=== PATIENT | female | born 1950 | race Caucasian/White ===

== ENCOUNTER 2020-11-14 04:28 | Emergency (ER) | payer MEDICARE, SELFPAY ==
--- NOTE | 2020-11-14 | ECG_ITS ---
Test Reason : ABD PAIN Blood Pressure : / mmHG Vent. Rate : 069 BPM Atrial Rate : 069 BPM P-R Int : 146 ms QRS Dur : 078 ms QT Int : 424 ms P-R-T Axes : 066 009 063 degrees QTc Int : 454 ms Normal sinus rhythm Normal ECG No previous ECGs available Referred By: Keira Foss Electronically Signed By:KRYSTIAN LOCKETT MD
--- NOTE | ~2020-11-14 | US_ITS ---
EXAMINATION: US ABDOMEN LIMITED CLINICAL INFORMATION: Right upper quadrant pain. COMPARISON: CT scan of same day TECHNIQUE: Real-time imaging of the right upper quadrant abdominal viscera. FINDINGS: PANCREAS: Pancreatic duct nonspecifically mildly prominent at 5 mm. No gross lesion demonstrated although imaging is limited. GALLBLADDER: Small stone noted without definite acute inflammatory changes. The patient however is reportedly tender in the right upper quadrant. No pericholecystic fluid or gallbladder wall thickening. COMMON BILE DUCT: Normal in caliber measuring 0.5 cm in diameter. FREE FLUID: None. US/US abdomen limited IMPRESSION: Gallstones without definitive findings of acute inflammatory changes sonographically. Nonspecific mild prominence of the pancreatic duct. No mass grossly.
--- NOTE | ~2020-11-14 | CT_ITS ---
EXAMINATION: CT ABDOMEN AND PELVIS WITHOUT CONTRAST CLINICAL INFORMATION: Right flank pain COMPARISON: None TECHNIQUE: Multidetector volumetric imaging was performed from the superior aspect of the liver through the pubic symphysis. Sagittal and coronal reformatted images were obtained on the technologist's workstation. This CT examination was performed using dose optimization techniques as appropriate, variously including the following: *Automated exposure control *Adjustment of mA and/or kV according to patient size (this includes techniques or standardized protocols for targeted exams where dose is matched to indication/reason for exam; i.e. extremities or head) *Use of iterative reconstruction technique DLP: 648 mGy-cm FINDINGS: LUNG BASES: The visualized lung bases demonstrate mild atelectasis. LIVER, GALLBLADDER, AND BILIARY TREE: The liver is normal in size, shape, and attenuation. No focal hepatic lesion or biliary ductal dilatation is present. The gallbladder is unremarkable with no evidence of radiopaque gallstones, gallbladder wall thickening, or obvious pericholecystic inflammatory changes. PANCREAS: Unremarkable. SPLEEN: Unremarkable. ADRENAL GLANDS: Unremarkable. KIDNEYS AND URETERS: The kidneys are normal in size, shape, and attenuation. No hydronephrosis, hydroureter, or calculi seen. No perinephric stranding. BLADDER: Unremarkable. GASTROINTESTINAL TRACT: Small hiatal hernia is noted. Colonic diverticulosis is noted. The small and large bowel are otherwise unremarkable without evidence of obstruction or pericolonic inflammatory change. The appendix is unremarkable. No free fluid or free air is seen. ABDOMINAL WALL: No significant hernia is appreciated. LYMPH NODES: Normal. VASCULAR: Scattered vascular calcifications are noted. PELVIC VISCERA: Unremarkable. OSSEOUS STRUCTURES: There is facet arthropathy of the lower lumbar spine. CT/CT abdomen pelvis wo con IMPRESSION: No hydronephrosis or obstructing calculus. No acute findings identified in the abdomen/pelvis. Small hiatal hernia.
[2020-11-14 04:32] VITALS: BP 113/73; BP 136/59; PULSE 70; PULSE 71; RESP 15; TEMP 36.9; O2SAT 93; O2SAT 94; BMI 32.2
--- NOTE | 2020-11-14 05:03 | ED.NAVMDI ---
HPI - Nausea/Vomiting/Diarrhea General Chief complaint: Nausea/Vomiting/Diarrhea Stated complaint: Rt Flank Pain Time Seen by Provider: 11/14/20 04:56 Source: patient Mode of arrival: EMS Limitations: no limitations History of Present Illness HPI Narrative: Patient comes emergency room complaining right-sided flank pain for last 9 hours, constant, radiating towards the right side of the back. Patient complaining of nausea and vomiting, no diarrhea, no abdominal pain, denies fever chills. MD elicited complaint: nausea and vomiting Related Data Allergies Allergy/AdvReac Type Severity Reaction Status Date / Time Sulfa (Sulfonamide Allergy Rash Verified 11/14/20 04:44 Antibiotics) Review of Systems Review of Systems: Constitutional : No Weight loss, No Fever, No Chills, No Night Sweats, No Fatigue, No Malaise ENT/Mouth : No Hearing loss, No Ear Pain, No Nasal Congestion, No Sinus Pain, No Hoarseness, No sore throat, No Rhinorrhea, No Swallowing Difficulty Eyes: No Eye Pain, No Swelling, No Redness, No Foreign Body, No Discharge, No Vision Changes Cardiovascular : No Chest Pain, No SOB, No Dyspnea on Exertion, No Orthopnea, No Edema, No Palpitations Respiratory : No Cough, No Sputum, No Wheezing, No Smoke Exposure, No Dyspnea Gastrointestinal : Planning of nausea and vomiting No Diarrhea, No Constipation, No abdominal Pain, No Hematochezia, No Melena, complaining of flank pain radiating towards the back Genitourinary : no irregular bleeding, No Dysuria, No Urinary Frequency, No Hematuria, No Urinary Incontinence, No Urgency, No Flank Pain, No Urinary Flow Changes, No Hesitancy Musculoskeletal : No joint pain, No Myalgias, No Joint Swelling Skin : No Skin Lesions, No rash Neuro : No Weakness, No Numbness, No Paresthesias, No Loss of Consciousness, No Dizziness, No Headache Psych : No Anxiety/Panic, No Depression, No SI/HI/AH/VH, No Social Issues, Heme/Lymph: No Bruising, No Bleeding,No Lymphadenopathy Endocrine : No Polyuria, No Polydipsia, No Temperature Intolerance PMFSH Past Medical History Medical History Anxiety Depression Frontal lobe dementia HTN (hypertension) Social History Social History Alcohol intake: never Patient Tobacco Use Status: Never used Tobacco Advance Directives: No Advance Directives Information Provided: No Physical Exam Vital Signs: Vital Signs: Last Vital Signs Temp 98.4 F 11/14/20 04:32 Pulse 65 11/14/20 05:54 Resp 14 11/14/20 05:54 BP 104/50 L 11/14/20 05:54 Pulse Ox 97 11/14/20 05:54 Body Mass Index 32.2 Appearance: Alert. Oriented X3. Mild distress, has severe nausea Eyes: Pupils equal, round and reactive to light. ENT: Pharynx normal. Neck: Normal inspection. Neck supple. No lymph nodes noted. No crepitus CVS: Normal heart rate and rhythm. Pulses normal. Normal S1 and S2 Respiratory: No respiratory distress. Breath sounds normal. No Wheezing. No rales Abdomen: Soft and nontender. No rigidity. No distention. Mild right-sided flank Skin: Skin warm and dry. Cseems pale Normal skin turgor. Extremities: No lower extremity edema. No Lacerations. No Rash Neuro: Oriented X 3. No motor deficit. No sensory deficit. Moving all extermities. No slurred speech. Course Course Course Narrative: Patient continues having right-sided flank pain/right upper quadrant pain she had CT scan was unremarkable. LFTs within normal limits. Patient is still very nauseous despite treatment and IV fluids. We will go ahead and order an ultrasound. Afterwards, if the patient is less nauseous and is able to tolerate p.o., is possible the patient may be discharged home, otherwise patient will likely be admitted. Sign out given to Dr. Oh [facility] - Nausea/Vomiting/Diarrhea Lab Data Result diagrams: 11/14/20 05:46 11/14/20 05:46 Labs: Lab Results 11/14/20 11/14/20 11/14/20 Range/Units 05:46 05:46 05:52 WBC 14.2 H (4.8-10.8) X10*3/uL RBC 4.29 (4.20-5.50) X10*6/uL Hgb 11.4 L (12.0-16.0) g/dl Hct 35.9 L (37-47) % MCV 83.7 (80-98) fL MCH 26.6 L (27.0-33.0) pg MCHC 31.8 (31.0-35.0) g/dl RDW 15.1 (11.0-16.0) % Plt Count 294 (160-400) X10*3/uL MPV 9.8 (9.4-12.3) fL Immature Gran % (Auto) 0.8 H (0.0-0.4) % Neut % (Auto) 82.5 H (45-73) % Lymph % (Auto) 9.6 L (20-40) % Camas % (Auto) 5.8 (2-11) % Eos % (Auto) 0.9 (0-4) % Baso % (Auto) 0.4 (0-2) % Lymph # (Auto) 1.4 (1.2-4.9) X10*3/uL Camas # (Auto) 0.8 (0.1-1.2) X10*3/uL Eos # (Auto) 0.1 (0.0-0.4) X10*3/uL Baso # (Auto) 0.1 (0.0-0.2) X10*3/uL Abs Immat Gran (auto) 0.11 H (0.00-0.03) X10*3/uL Absolute Neuts (auto) 11.8 H (2.0-8.3) X10*3/uL Absolute Nucleated RBC 0.000 (0.0-0.012) X10*3/uL Nucleated RBC % (auto) 0.0 (0.0-0.2) /100WBC Sodium 138 (135-145) mmol/L Potassium 3.6 (3.3-5.1) mmol/L Chloride 107 (96-108) mmol/L Carbon Dioxide 22 (22-29) mmol/L Anion Gap 13 (12-20) BUN 17 H (9-16) mg/dL Creatinine 0.78 (0.5-1.4) mg/dL Estim Creat Clear Calc 61.5 Estimated GFR > 60 Random Glucose 119 H (60-115) mg/dL Calcium 8.4 (8.4-10.2) mg/dL Total Bilirubin 0.4 (0.0-1.0) mg/dL Direct Bilirubin 0.2 (0.0-0.5) mg/dL AST 13 (5-31) U/L ALT 15 (0-31) U/L Alkaline Phosphatase 82 (39-117) U/L Total Protein 6.3 L (6.5-8.0) g/dL Albumin 3.6 (3.5-5.0) g/dL Lipase 55 (8-78) U/L Urine Color YELLOW Urine Appearance CLEAR Urine pH 6.0 (5.0-8.0) Ur Specific Sebastian >= 1.030 H (1.005-1.025) Urine Protein NEG (NEG-TRACE) MG/DL Urine Glucose (UA) NEG (NEG) MG/DL Urine Ketones NEG (NEG) MG/DL Urine Blood TRACE (NEG) Urine Nitrite NEG (NEG) Ur Leukocyte Esterase NEG (NEG) Urine RBC 1-4 (0) /HPF Urine WBC 1-4 (0-4) /HPF Ur Squamous Epith Cells 1+ /LPF Urine Bacteria 1+ /LPF Urine Mucus 1+ /LPF Imaging Data CT scan - abdomen: Radiologist's impression: FINDINGS: LUNG BASES: The visualized lung bases demonstrate mild atelectasis. LIVER, GALLBLADDER, AND BILIARY TREE: The liver is normal in size, shape, and attenuation. No focal hepatic lesion or biliary ductal dilatation is present. The gallbladder is unremarkable with no evidence of radiopaque gallstones, gallbladder wall thickening, or obvious pericholecystic inflammatory changes. PANCREAS: Unremarkable. SPLEEN: Unremarkable. ADRENAL GLANDS: Unremarkable. KIDNEYS AND URETERS: The kidneys are normal in size, shape, and attenuation. No hydronephrosis, hydroureter, or calculi seen. No perinephric stranding. BLADDER: Unremarkable. GASTROINTESTINAL TRACT: Small hiatal hernia is noted. Colonic diverticulosis is noted. The small and large bowel are otherwise unremarkable without evidence of obstruction or pericolonic inflammatory change. The appendix is unremarkable. No free fluid or free air is seen. ABDOMINAL WALL: No significant hernia is appreciated. LYMPH NODES: Normal. VASCULAR: Scattered vascular calcifications are noted. PELVIC VISCERA: Unremarkable. OSSEOUS STRUCTURES: There is facet arthropathy of the lower lumbar spine. CT/CT abdomen pelvis wo con IMPRESSION: No hydronephrosis or obstructing calculus. No acute findings identified in the abdomen/pelvis. Small hiatal hernia. ECG Data Attestation: I personally reviewed and interpreted this ECG as follows: (Sinus rhythm, heart rate 69, his segment depression or elevation, no T-wave inversion. QTC 454)
[2020-11-14] MEDS: 0.9 % Sodium Chloride 1,000 ML 999 ML IVCONT (05:15)
[2020-11-14] MEDS: ondansetron HCL 4 MG/2 ML VIAL IVPUSH (05:15)
[2020-11-14 05:16] VITALS: RESP 15
[2020-11-14] MEDS: Morphine Sulfate 4 MG/ML CARTRIDGE IVPUSH (05:16)
[2020-11-14 05:52] LABS: Basophils Absolute Auto 0.1 X10*3/uL (0.0-0.2); Basophils Percent Auto 0.4 % (0-2); Eosinophils Absolute Auto 0.1 X10*3/uL (0.0-0.4); Eosinophils Percent Auto 0.9 % (0-4); Hematocrit 35.9 % (37-47); Hemoglobin 11.4 g/dl (12.0-16.0); Imm Gran Abs Auto 0.11 X10*3/uL (0.00-0.03); Imm Gran Pct Auto 0.8 % (0.0-0.4); Lymphocytes Absolute Auto 1.4 X10*3/uL (1.2-4.9); Lymphocytes Percent Auto 9.6 % (20-40); MANUAL DIFF FLAG NO; Mean Corpuscular HGB Conc 31.8 g/dl (31.0-35.0); Mean Corpuscular Hemoglobin 26.6 pg (27.0-33.0); Mean Corpuscular Volume 83.7 fL (80-98); Mean Platelet Volume 9.8 fL (9.4-12.3); Monocytes Absolute Auto 0.8 X10*3/uL (0.1-1.2); Monocytes Percent Auto 5.8 % (2-11); Neutrophils Absolute Auto 11.8 X10*3/uL (2.0-8.3); Neutrophils Percent Auto 82.5 % (45-73); Platelet Count 294 X10*3/uL (160-400); Red Blood Count 4.29 X10*6/uL (4.20-5.50); Red Cell Distribution Width 15.1 % (11.0-16.0); White Blood Count 14.2 X10*3/uL (4.8-10.8)
[2020-11-14 05:54] VITALS: BP 104/50; PULSE 65; RESP 14; O2SAT 97
[2020-11-14 06:00] LABS: Glucose Urine UA NEG (NEG); Leukocyte Esterase Urine NEG (NEG); Nitrite Urine NEG (NEG); Specific Gravity - Urine >= 1.030 (1.005-1.025); Urine Blood TRACE (NEG); Urine Ketones NEG (NEG); Urine Protein NEG (NEG-TRACE)
[2020-11-14 06:08] LABS: Appearance Urine CLEAR; Color Urine YELLOW
--- NOTE | 2020-11-14 06:11 | PC.NURSE ---
PT AMBULATED TO BATHROOM TO PROVIDE A UA WITH THIS PCT HELP.
[2020-11-14 06:12] LABS: Bacteria Urine 1+ /LPF; Mucus Urine 1+ /LPF; Squamous Epithelial Cell Urine 1+ /LPF
[2020-11-14 06:24] LABS: Alanine Aminotransferase 15 U/L (0-31); Albumin Level 3.6 g/dL (3.5-5.0); Alkaline Phosphatase 82 U/L (39-117); Anion Gap 13 (12-20); Aspartate Amino Transferase 13 U/L (5-31); Bilirubin Direct 0.2 mg/dL (0.0-0.5); Bilirubin Total 0.4 mg/dL (0.0-1.0); Blood Urea Nitrogen 17 mg/dL (9-16); Calcium 8.4 mg/dL (8.4-10.2); Carbon Dioxide 22 mmol/L (22-29); Chloride 107 mmol/L (96-108); Creatinine Clr Calc Pharmacy 61.5; Estimated Glomerular Filt Rate > 60; Glucose Random 119 mg/dL (60-115); Lipase 55 U/L (8-78); Potassium 3.6 mmol/L (3.3-5.1); Sodium 138 mmol/L (135-145); Total Protein 6.3 g/dL (6.5-8.0)
[2020-11-14] MEDS: Prochlorperazine Edisylate 10 MG/2 ML VIAL IVPUSH (07:05)
== END 2020-11-14 09:51 | disposition home or self-care (01) ==
PROVIDERS: Emergency Provider Emergency Medicine
DX: R10.9 Unspecified abdominal pain (principal); M54.5 Low back pain; I10 Essential (primary) hypertension; Z79.899 Other long term (current) drug therapy
CPT/HCPCS: 36415; 74176; 76705; 80048; 80076; 81001; 81003; 83690; 85025; 93005; 96365; 96375; 99285; J2270; J2405

== ENCOUNTER → 2021-09-28 15:18 | Outpatient (BNVA) | payer MEDICARE, SELFPAY | PROVIDERS: PCP Physician Assistant Medical; Visit Provider Internal Medicine Rheumatology | DX: M35.3 Polymyalgia rheumatica (principal) | CPT/HCPCS: 99212 ==

== ENCOUNTER → 2022-02-08 10:03 | Outpatient (BNVA) | payer MEDICARE, SELFPAY | PROVIDERS: PCP Physician Assistant Medical; Visit Provider Internal Medicine Rheumatology | DX: M35.3 Polymyalgia rheumatica (principal); F32.9 Major depressive disorder, single episode, unspecified; F41.9 Anxiety disorder, unspecified | CPT/HCPCS: Q3014 ==

== ENCOUNTER 2025-01-15 12:20 | Outpatient (AMB) | payer MEDICARE, SELFPAY ==
--- NOTE | 2025-01-15 12:40 | MHC.OFFVIS ---
Intake Visit Reasons: 6 Months Allergies Sulfa (Sulfonamide Antibiotics) Allergy (Verified 02/08/22 10:03) Rash HPI Comments Details: 75 years old woman with frontal lobe degeneration noted on imaging with behavioral symptomatology including anxiety and paranoia, and fibromyalgia versus polymyalgia rheumatica type of syndrome. She is presenting with stress-induced symptoms, including twitching of her right eye, likely related to significant life stressors. She reports enduring considerable stress involving familial and relational dynamics. Specifically, she cites the cessation of her 's SSI benefits as a primary stressor, increasing her anxiety levels. This financial predicament is compounded by her 's pre-existing spinal stenosis, which has rendered him disabled for several years. The cessation of benefits due to policy changes aggravates her concern over their financial stability. Further, the patient's marital relationship is strained, with her indicating significant discord and lack of mutual understanding with her spouse. This discord, coupled with a lack of supporting relationships, contributes to feelings of loneliness and emotional distress. The patient has expressed that traditional therapeutic options would not benefit her current situation, as she perceives them to be stagnant. She is on a medication regimen that includes Seroquel, clonazepam, and propranolol, and she reports these are managing her symptoms effectively. [facility] [place] [place] Medical History (Updated 01/15/25 @ 12:44 by Flaquito Wood MD) Polymyalgia rheumatica Frontal lobe dementia Depression Anxiety HTN (hypertension) Surgical History (Updated 09/28/21 @ 15:35 by Ninoska Rodriguez [facility]) Previous Hx of tubal ligation Social History Household Members: Spouse Alcohol intake: never Patient Tobacco Use Status: Never used Tobacco Review of Systems Const Details: - Neurologic: Reports stress-induced right eye twitching. - Psychiatric: Reports significant stress, loneliness, and marital discord; denies intent to see a therapist. Physical Exam Neuro Other: She is alert and awake with normal spontaneity of speech fluency comprehension and depressed affect. She was walking cautiously with a cane. Assessment & Plan Assessment & Plan (1) Anxiety: Code(s): F41.9 - Anxiety disorder, unspecified Category: Medical (2) Tremor: Code(s): R25.1 - Tremor, unspecified Category: Medical (3) Frontal lobe dementia: Comment: CT brain at [facility] [place] in 2006 w/o cont: mild cerebellar and bifrontal atrophy MRI brain at [facility] In 2009 w/o cont: minimal MVD PET scan at [facility] in 2010: FT hypoperfusion. Code(s): G31.09 - Other frontotemporal neurocognitive disorder; F02.80 - Dementia in other diseases classified elsewhere, unspecified severity, without behavioral disturbance, psychotic disturbance, mood disturbance, and anxiety Category: Medical Plan Impression recommendations: 75 years old woman with frontal lobe dementia syndrome conservatively treated. She was under stress because of household issues and financial issues. She was reassured and educated. She did not want to seek formal therapy at this point in stated that medicines were working and she would continue to take these medicines. Medications: New quetiapine 50 mg PO DAILY 90 tabs 1RF Changed From propranolol 20 mg PO DAILY To propranolol 20 mg PO BID 180 tabs 1RF Refilled clonazepam 1 mg PO BEDTIME 90 tabs 1RF Coding Level of Care Code Est Pt Level 4 (23177) Diagnoses Anxiety F41.9 Tremor R25.1 Frontal lobe dementia G31.09; F02.80
--- OUTSIDE RECORDS SUMMARY | 2025-01-15 15:13 | XMS_ITS | Clinical Summary ---
Author Organization [facility] [address] [facility] Address [address] [place] [id number] Phone Care Team Providers Care Stockroom Clerk Name Role Phone Gabriel Bernard Primary Care Provider [phone] Allergies Active Allergy Reactions Criticality Noted Date Comments Benzodiazepines Numbness 08/09/2005 Hydrochlorothiazide 01/08/2016 Iodinated Contrast Media 04/12/2005 not certain which exact dye. Sulfa (Sulfonamide Antibiotics) Rash 02/23 Medications clonazePAM (KlonoPIN) 1 mg tablet 08/22/19 24 Active meclizine (ANTIVERT) 25 mg tablet Take 1 tablet (25 mg total) by mouth. 01/30/20 24 Active propranoloL (INDERAL) 20 mg tablet Take 1 tablet (20 mg total) by mouth 1 (one) time each day. Active QUEtiapine (SEROquel) 50 mg tablet Take 1 tablet (50 mg total) by mouth 2 (two) times a day. 11/02/19 23 Active triamcinolone (KENALOG) 0.5 % cream Apply to affected areas twice daily for 2 weeks 10/23/19 23 Active alendronate (FOSAMAX) 70 mg tablet Take 1 tablet (70 mg total) by mouth every 7 (seven) days. 12 each 1 06/21/19 25 Active gabapentin (NEURONTIN) 400 mg capsule Take 1 capsule (400 mg total) by mouth 2 (two) times a day. 180 capsule 1 06/21/19 25 Active levothyroxine (SYNTHROID, LEVOTHROID) 50 mcg tabletIndicatio ns:Essential (primary) hypertension Take 1 tablet (50 mcg total) by mouth 1 (one) time each day before breakfast. 127 tablet 1 01/15/20 Active levothyroxine (SYNTHROID, LEVOTHROID) 50 mcg tabletIndicatio ns:Essential (primary) hypertension Take 1 tablet (50 mcg total) by mouth 1 (one) time each day before breakfast. 90 tablet 1 06/21/19 25 025 Discontinued levothyroxine (SYNTHROID, LEVOTHROID) 50 mcg tabletIndicatio ns:Essential (primary) hypertension TAKE 1 TABLET BY MOUTH ONCE DAILY BEFORE BREAKFAST 90 tablet 1 12/29/19 25 025 Discontinued(Re order) Active Problems Problem Noted Date Diagnosed Date Gallbladder stone with nonacute cholecystitis Newly diagnosed diabetes ([facility] V24, [facility] V 28) 11/15/2022 PMR (polymyalgia rheumatica) ([facility] V24) 02/12 Abnormal x-ray of pelvis 01/31/2020 Overview (02/17/2024): 01/2020- f/u images ordered, patient does not feel this can be done due to financial concerns. 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 Osteopenia 02/12/2008 Hypothyroidism 04/12/2005 Encounters Date Type Department Care Team Description 01/14/2025 Telephone Adult Medicine [address] [id number] Gabriel Bernard PA from Last 3 Months Immunizations Name Administration Dates Next Due H1N1 Inj Preservative Free 05/13/2009 Influenza Quadravalent, 0.5m l (Fluzone High-dose) 65yo and older 01/28/2023,01/17/2020 Influenza trivalent, 0.5mL ( Fluad) 65yo and older 02/06/2021,01/29/2019,01/29/2018,02/02,01/08/2016 Influenza trivalent, 0.5mL ( Fluzone High-dose) 65yo and older 01/23/2024 Influenza trivalent, 0.5mL, preservative free (Fluarix; FluLaval; Fluzone) ages 6mo and older (Afluria) 3 years and older 02/22/2014,03/08/2013,01/18/2012,01/26,02/07/2010,01/20/2009,02/12/2008 ,02/05/2007 Influenza, Unspecified 01/15/2020 [employer] SARS-CoV-2 COVID-19, mRNA, LNP-S, preservative free 01/23/2024,03/11/2021 Pneumococcal conjugate 13 va lent (Prevnar 13, PCV13) 2mo and older 01/08/2016 Pneumococcal polysaccharide 23 valent (Pneumovax 23) 2yo and older 02/02/2017 Tdap Tetanus diptheria acell ular pertussis (Boostrix; Adacel) 7yo and older 02/12/2008 Zoster recombinant (Shingrix ) 19yo and older 12/17/2024,10/10/2024 Surgical History Surgery Date Site/Laterality Comments OTHER SURGICAL HISTORY PROCEDURE: [place] LIG/TRNSXJ FLP TUBE ABDL/VAG APPR UNI/BI TONSILLECTOMY ADENOIDECTOMY, BILATERAL MYRINGOTOMY AND TUBES PROCEDURE: [place] TONSILLECTOMY & ADENOIDECTOMY <AGE 13 Medical History Medical History Date Comments Unspecified disorder of thyroid DX:Unspecified disorder of thyroid Abnormal involuntary movements(781.0) DX:Abnormal involuntary movements(781.0) Historical Medical DX 02/16/2008 DX:Basal c ell cancer; COMMENT: Mac; Abdomen & Leg Anxiety state, unspecified DX:An xiety state, unspecified Dementia ([facility] V24, [facility] V28) DX:Dementia (HCC); COMMENT: Frontal Lobe dementia, she was diagnosed 02/01 Vitamin D deficiency 06/15/2010 DX:Vitamin D deficiency Esophageal reflux DX:Esophageal reflux Gallbladder stone with nonac doug cholecystitis DX:Gallbladder stone with no nacute cholecystitis Depressive disorder DX:Depressiv e disorder Hyperlipidemia DX:Hyperlipidemi a Family History Medical History Relation Name Comments Depression Maternal Grandfather Depression Mother anxiety Heart failure Paternal Grandfather Heart failure Paternal Grandmother Depression Sister 1 manic depressiv e Breast cancer Neg Hx Relation Name Status Comments Father Maternal Grandfather Mother Paternal Grandfather Paternal Grandmother Sister 1 Sister 2 Alive pvd copd obesit y Sister 3 Alive panic anxiety d epression Social History Tobacco Use Types Packs/Day Years Used Date Smoking Tobacco: Never Smokeless Tobacco: Never Tobacco Cessation:Counseling Given: Not Answered Alcohol Use Standard Drinks/Week Comments No 0 (1 standard drink = 0.6 oz pur e alcohol) Housing Instability Answer Date Recorde d Are you worried that in the next 2 months you may not have stable housing? No 06/21/2024 Food Access & Nutrition Answer Date Rec orded Do you have access to a vari ety of food including fruits and vegetables? Yes 06/21/2024 Access to Healthcare Answer Date Record ed Within the last 3 months, ho w many times did you visit the emergency department for your medical care? 0 06/21/2024 Health Literacy Answer Date Recorded How often do you need to hav e someone help you when you read instructions, pamphlets, or other written material from your doctor or pharmacy? Never 06/21/2024 Caregiver: How often do you need to have someone help you when you read instructions, pamphlets, or other written material from your doctor or pharmacy? Not on file 06/21/2024 Financial Risk Answer Date Recorded How hard is it for you to pa y for the very basics like food, housing, medical care, and air conditioning / heating? Not very hard 06/21/2024 Transportation Answer Date Recorded Has the lack of transportati on kept you from meetings, work, or from getting things needed for daily living? No Has the lack of transportati on kept you from medical appointments or from getting medications? No 06/21/2024 Food Risk Answer Date Recorded Within the past 12 months we worried whether our food would run out before we got money to buy more. Never true 06/21/2024 Within the past 12 months th e food we bought just didn't last and we didn't have money to get more. Never true 06/21/2024 Dependent Care Answer Date Recorded Do you need help finding or paying for care for your loved ones. For example, child support case officer or elderly care for an older adult? No 06/21/2024 Education Answer Date Recorded Do you think completing more education or training, like finishing a GED, going to college, or learning a trade, would be helpful for you? No 06/21/2024 Employment and Income Answer Date Recor ded During the last four weeks, have you been actively looking for work? No 06/21/2024 Living Situation Answer Date Recorded What is your living situation? 0 06/21/2024 Comments Unknown Sex and Gender Information Value Date Recorded Sex Assigned at Not on file Legal Sex Female 5:04 PM EST Gender Identity Not on file Sexual Orientation Not on file Obstetrics History Para Term AB IAB SAB Ectopic Multiple Livin g Live Births 0 0 0 Last Filed Vital Signs Vital Sign Reading Time Taken Comments Blood Pressure 121/75 06/21/2024 1:23 PM EST Pulse 65 06/21/2024 1:23 PM EST Temperature 35.9 C (96.6 F) 06/21/2024 1:23 PM EST Respiratory Rate 16 06/21/2024 1:23 PM EST Oxygen Saturation - - Inhaled Oxygen Concentration - - Weight 74.4 kg (164 lb) 06/21/2024 1:23 PM EST Height 152.4 cm (5') 06/21/2024 1:23 PM EST Body Mass Index 32.03 06/21/2024 1:23 PM EST Plan of Treatment Upcoming Encounters Date Type Department Care Team (Late st Contact Info) Description 02/26/2025 12:30 PM EST Office Visit Adult Medicine [facility] [address], [place] [phone] Latia Lr PA [address], [place] Health Maintenance Due Date Last Done Comments Diabetes: Annual Retina Eye Exam 1961 DTaP,Tdap,and Td Vaccines (2 - Td or Tdap) 02/11/2018 02/12/2008 Colorectal Cancer Screening: Colonoscopy 03/24/2022 Hepatitis C Screening 03/24/2022 Medicare Annual Wellness Visit 03/24/2022 Osteoporosis Screening (Bone Density Screening) 08/22/2024 08/23/2023, 08/23/2023 COVID-19 Vaccine ( season) 2024 01/23/2024, 01/28/2023, 03/11/2021, Additional history exists Influenza Vaccine (#1) 2024 , 01/28/2023, 02/06/2021, Additional history exists Diabetes: Annual Urine Albumin-Creatinine Ratio (uACR) 06/19/2025 06/19/2024 Diabetes: Annual Foot Exam 06/21/2025 06/21/2024 Falls Risk Assessment 06/21/2025 06/21/2024 Social Influencers of Health Screening 06/21/2025 06/21/2024 Diabetes: Blood Sugar Control Test (HGBA1C) 07/09/2025 01/09/2025, 06/19/2024, 11/14/2023 RSV Immunization Adult Patients (1 - 1-dose 75+ series) 2026 Diabetes: Annual GFR (Glomerular Filtration Rate) 01/09/2026 01/09/2025, 06/19/2024, 11/14/2023 Hypertension/CHF/CAD Annual BMP Blood Test 01/09/2026 01/09/2025, 06/19/2024, 11/14/2023 Breast Cancer Screening 08/31/2026 09/01/19, 08/23/2023, 08/23/2023 Cholesterol Screening (Lipid Panel) 01/09/2030 01/09/2025, 06/19/2024, 11/14/2023 Pneumococcal Vaccine: 50+ Years Completed 02/02/2017, 01/08/2016 Depression Screening Completed 06/21/2024 Zoster Vaccines Completed 12/17/2024, 10/10/2024 HIB Vaccines Aged Out No longer eligi ble based on patient's age to complete this topic HPV Vaccines Aged Out No longer eligi ble based on patient's age to complete this topic Hepatitis A Vaccines Aged Out No long er eligible based on patient's age to complete this topic Hepatitis B Vaccines Aged Out No long er eligible based on patient's age to complete this topic IPV Vaccines Aged Out No longer eligi ble based on patient's age to complete this topic MMR Vaccines Aged Out No longer eligi ble based on patient's age to complete this topic Meningococcal ACWY Vaccine Aged Out N o longer eligible based on patient's age to complete this topic Meningococcal B Vaccine Aged Out No l onger eligible based on patient's age to complete this topic RSV Immunization Patients Under 20 months Aged Out No longer eligible based on patient's age to complete this topic Varicella Vaccines Aged Out No longer eligible based on patient's age to complete this topic Procedures Procedure Name Priority Date/Time Associated Diagnosis Comments HEMOGLOBIN A1C Routine 01/09/2025 2:10 PM EDT Controlled type 2 diabetes mellitus without complication, without long-term current use of insulin ([facility] V24, [facility] V28) BASIC METABOLIC PANEL Routine 01/09/2025 2:10 PM EDT Controlled type 2 diabetes mellitus without complication, without long-term current use of insulin ([facility] V24, [facility] V28) LIPID PANEL WITH REFLEX TO DIRECT LDL Routine 01/09/2025 2:10 PM EDT Controlled type 2 diabetes mellitus without complication, without long-term current use of insulin ([facility] V24, [facility] V28) VITAMIN D 25 HYDROXY Routine 01/09/2025 2:10 PM EDT Vitamin D deficiency IRON AND TIBC Routine 01/09/2025 2:10 PM EDT Iron deficiency MG MAMMO DIGITAL SCREENING W KIKE BILAT Routine 08/31/2024 10:54 AM EDT Encounter for screening mammogram for breast cancer MICROALBUMIN CREATININE URINE RATIO Routine 06/19/2024 12:30 PM EST Newly diagnosed diabetes ([facility] V24, [facility] V28) DXA BONE DENSITY STUDY 1+ SITS AXIAL SKEL Routine 08/23/2023 10:43 AM EDT Other specified disorders of bone density and structure, unspecified site from Last 3 Months or Most Recently Relevant to Health Maintenance Results * (ABNORMAL) Lipid panel with reflex to direct LDL (01/09/2025 2:10 PM EDT) Cholesterol 218(H) 0 - 200 mg/dL LAB CHEMISTRY METHOD 01/09/2025 4:57 PM EDT [facility] Triglycerides 361(H) 0 - 150 mg/dL LAB CHEMISTRY METHOD 01/09/2025 4:57 PM EDT [facility] HDL 37(L) >=40 mg/dL LAB CHEMISTRY METHOD 01/09/2025 4:57 PM EDT [facility] LDL Calculated 109(H) 0 - 100 mg/dL LAB CHEMISTRY METHOD 01/09/2025 4:57 PM EDT [facility] Comment:Estimated LDL Calcul ated using equation: Total cholesterol - HDL cholesterol - (Triglycerides/5) VLDL Cholesterol Fahad 72.2 mg/dL LAB CHEMISTRY METHOD 01/09/2025 4:57 PM EDT [facility] Non HDL Chol. (LDL+VLDL) 181(H) <145 mg/dL LAB CHEMISTRY METHOD 01/09/2025 4:57 PM EDT [facility] Chol/HDL Ratio 5.9(H) 0.0 - 4.4 LAB CHEMISTRY METHOD 01/09/2025 4:57 PM EDT [facility] Blood Venous blood specimen / Unknown Venipuncture / Unknown 01/09/2025 2:10 PM EDT 01/09/2025 2:10 PM EDT us Latia Be VALENZUELA LAB BLOOD ORDERABLES Final Resul t [facility] [address] [place] [address], [place] [phone] * Iron and TIBC (01/09/2025 2:10 PM EDT) Iron 73 40 - 150 mcg/dL LAB CHEMISTRY METHOD 01/09/2025 4:57 PM EDT [facility] TIBC 423 250 - 450 mcg/dL LAB CHEMISTRY METHOD 01/09/2025 4:57 PM EDT [facility] Iron Saturation 17 15 - 50 % LAB CHEMISTRY METHOD 01/09/2025 4:57 PM EDT [facility] Blood Venous blood specimen / Unknown Venipuncture / Unknown 01/09/2025 2:10 PM EDT 01/09/2025 2:10 PM EDT Latia Be VALENZUELA LAB BLOOD ORDERABLES Final Resul t Performing Organization Address City/[facility]/ZIP Co de Phone Number [facility] [address] [place] [address], [place] [phone] * (ABNORMAL) Vitamin D 25 hydroxy (01/09/2025 2:10 PM EDT) Pathologist [facility] Vit D, 25-Hydroxy 29.8(L) 30.0 - 80.0 ng/mL LAB CHEMISTRY METHOD 01/09/2025 5:25 PM EDT [facility] Blood Venous blood specimen / Unknown Venipuncture / Unknown 01/09/2025 2:10 PM EDT 01/09/2025 2:10 PM EDT us [employer] PA LAB BLOOD ORDERABLES Final Resul t [facility] [address] [place] [address], [place] [phone] * Hemoglobin A1c (01/09/2025 2:10 PM EDT) Pathologist [facility] Hemoglobin A1C 6.1 <6.5 % LAB CHEMISTRY METHOD 01/09/2025 8:17 PM EDT [facility] Mean Bld Glu Estim. 128 mg/dL LAB CHEMISTRY METHOD 01/09/2025 8:17 PM T [facility] Blood Venous blood specimen / Unknown Venipuncture / Unknown 01/09/2025 2:10 PM EDT 01/09/2025 2:10 PM EDT us Latia Be VALENZUELA LAB BLOOD ORDERABLES Final Resul t [facility] [address] [place] [address], [place] [phone] * (ABNORMAL) Basic metabolic panel (01/09/2025 2:10 PM EDT) Sodium 142 133 - 145 mmol/L LAB CHEMISTRY METHOD 01/09/2025 4:[address] [facility] Potassium 3.9 3.5 - 5.5 mmol/L LAB CHEMISTRY METHOD 01/09/2025 4:[address] [facility] Chloride 108 96 - 110 mmol/L LAB CHEMISTRY METHOD 01/09/2025 4:[address] [facility] CO2 26 21 - 32 mmol/L LAB CHEMISTRY METHOD 01/09/2025 4:[address] [facility] Anion Gap 8 3 - 11 LAB CHEMISTRY METHOD 01/09/2025 4:[address] [facility] Glucose 86 70 - 100 mg/dL LAB CHEMISTRY METHOD 01/09/2025 4:[address] [facility] BUN 16 5 - 25 mg/dL LAB CHEMISTRY METHOD 01/09/2025 4:[address] [facility] Creatinine 1.09 0.50 - 1.10 mg/dL LAB CHEMISTRY METHOD 01/09/2025 4:[address] [facility] eGFR 53(L) >=60 mL/min/1. 73m2 LAB CHEMISTRY METHOD 01/09/2025 4:57 PM EDT [facility] Comment:Calculation based on the Chronic Kidney Disease Epidemiology Collaboration (CKD-EPI) equation refit without adjustment for race. BUN/Creatinine Ratio 14.7 LAB CHEMISTRY METHOD 01/09/2025 4:57 PM EDT [facility] Calcium 9.6 8.5 - 10.5 mg/dL LAB CHEMISTRY METHOD 01/09/2025 4:57 PM EDT [facility] Blood Venous blood specimen / Unknown Venipuncture / Unknown 01/09/2025 2:10 PM EDT 01/09/2025 2:10 PM EDT us Latia VALENZUELA LAB BLOOD ORDERABLES Final Resul t [facility] [address] [place] [address], * MG Mammo Digital Screening w Kike bilat (08/31/2024 10:54 AM EDT) Anatomical Region Laterality Modality Breast Bilateral Mammography 08/31/2024 5:28 PM EDT Impressions 08/31/2024 5:33 PM EDT No mammographic evidence for malignancy. BI-RADS CATEGORY: 1 - NEGATIVE RECOMMENDATION: Screening bilateral mammogram is recommended in 1 year. Mammo Location: [facility], [address] [place] [address], [id number], . -------- FINAL REPORT -------- Dictated By: Mimi Reyes Dictated Date: 08/31/2024 17:28 ET Assigned Physician: Mimi Reyes Reviewed and Electronically Signed By: Mimi Reyes Signed Date: 08/31/2024 17:33 ET Workstation ID: [id number] Transcribed By: Self Edit Transcribed Date: 08/31/2024 17:28 ET Narrative 08/31/2024 5:33 PM EDT Bilateral screening mammogram. CLINICAL: 74 years old, Female, routine annual exam. COMPARISON: Prior screening exam from 08/23/2023. TECHNIQUE: Bilateral MLO and CC views were obtained digitally with 2-D C views and 3-D mammogram (digital breast tomosynthesis). Computer-aided detection was utilized in evaluation of this exam (CAD). FINDINGS: There is no evidence of new suspicious mass or architectural distortion. No worrisome calcifications are evident. There has been no significant change from prior exam(s). BREAST DENSITY: B - There are scattered areas of fibroglandular density. Procedure Note Mimi Reyes MD - 08/31/2024 Bilateral screening mammogram. CLINICAL: 74 years old, Female, routine annual exam. COMPARISON: Prior screening exam from 08/23/2023. TECHNIQUE: Bilateral MLO and CC views were obtained digitally with 2-D Cviews and 3-D mammogram (digital breast tomosynthesis). Computer-aideddetection was utilized in evaluation of this exam (CAD). FINDINGS: There is no evidence of new suspicious mass or architectural distortion.No worrisome calcifications are evident. There has been no significantchange from prior exam(s). BREAST DENSITY: B - There are scattered areas of fibroglandular density. IMPRESSION: No mammographic evidence for malignancy. BI-RADS CATEGORY: 1 - NEGATIVE RECOMMENDATION: Screening bilateral mammogram is recommended in 1 year. Mammo Location: [facility], [address] [place] [address], [id number], . -------- FINAL REPORT -------- Dictated By: Mimi Reyes Dictated Date: 08/31/2024 17:28 ET Assigned Physician: Mimi Reyes Reviewed and Electronically Signed By: Mimi Reyes Signed Date: 08/31/2024 17:33 ET Workstation ID: [id number] Transcribed By: Self Edit Transcribed Date: 08/31/2024 17:28 ET Gabriel VALENZUELA IMG BI PROCEDURES Final R esult * Microalbumin creatinine urine ratio (06/19/2024 12:30 PM EST) Creatinine, Urine 118.0 mg/dL LAB CHEMISTRY METHOD 06/19/2024 2:51 PM EST [facility] Microalb, Ur 19.3 0.0 - 29.0 mg/L LAB CHEMISTRY METHOD 06/19/2024 2:51 PM EST [facility] Microalb/Creat Ratio 16 <30 mg/g creat LAB CHEMISTRY METHOD 06/19/2024 2:51 PM EST [facility] Urine Urine specimen obtained by clean catch procedure / Unknown Non-blood Collection / Unknown 06/19/2024 12:30 PM EST 06/19/2024 12:30 PM EST us Latia Be VALENZUELA LAB URINE ORDERABLES Final Resul t [facility] [address] [place] [address], * DXA BONE DENSITY STUDY 1+ SITS AXIAL SKEL (08/23/2023 10:43 AM EDT) Anatomical Region Laterality Modality Bone Densitometr y 11/01/2022 3:59 PM EDT Narrative 08/23/2023 8:11 PM EDT BONE DENSITY SCAN (DEXA): FINDINGS: Lumbar Spine T-score is -1.3. (SD relative to 20-29 y/o adult) Z-score is 1.0. (SD relative to age matched peers) This is considered osteopenia by WHO criteria. Left Hip T-score is -3.6. Z-score is -1.7. This is considered osteoporosis by WHO criteria. Comparison exam(s): 09/27/2007. No statistically significant change in bone mineral density. IMPRESSION: IMPRESSION: Osteoporosis by WHO criteria. [facility] Department of Internal Medicine recommends using National Osteoporosis Foundation (NOF) guidelines in treatment decisions related to osteoporosis. NOF guidelines suggest considering treatment for postmenopausal women and men aged 50 or older presenting with the following: History of hip or vertebral fracture. T-score = -2.5 (DXA) at the femoral neck, total hip, or spine, after appropriate evaluation to exclude secondary causes. Low bone mass (T-score between -1.0 and -2.5 at the femoral neck or spine) AND a 10-year probability of a hip fracture = 3% OR a 10-year probability of a major osteoporosis-related fracture = 20% based on the [place]-adapted WHO algorithm Please note that all treatment decisions require clinical judgment and consideration of individual patient factors, including patient preferences, co-morbidities, previous drug use, risk factors not captured in the FRAX model (e.g., frailty, falls, vitamin D deficiency, increased bone turnover, interval significant decline in bone density) and possible under- or over-estimation of fracture risk by FRAX. Optional alternative screening schedule based on rojas Solis., [facility] May 13, 2011 for patients with osteopenia (based on hip BMD T-score) is as follows: * advanced osteopenia (T scores -2.00 to -2.49), BMD testing every year * moderate osteopenia (T scores -1.50 to -1.99), BMD testing every 5 years mild osteopenia or normal BMD (T scores -1.50 and higher), BMD testing every 15 years Procedure Note Kat Nolan MD - 12/12/2023 BONE DENSITY SCAN (DEXA): FINDINGS: Lumbar Spine T-score is -1.3. (SD relative to 20-29 y/o adult) Z-score is 1.0. (SD relative to age matched peers) This is considered osteopenia by WHO criteria. Left Hip T-score is -3.6. Z-score is -1.7. This is considered osteoporosis by WHO criteria. Comparison exam(s): 09/27/2007. No statistically significant change inbone mineral density. IMPRESSION: IMPRESSION: Osteoporosis by WHO criteria. [facility] Department of Internal Medicine recommendsusing National Osteoporosis Foundation (NOF) guidelines in treatment decisions related toosteoporosis. NOF guidelines suggest considering treatment for postmenopausal women and menaged 50 or older presenting with the following: History of hip or vertebral fracture. T-score = -2.5 (DXA) at the femoral neck, total hip, or spine, afterappropriate evaluation to exclude secondary causes. Low bone mass (T-score between -1.0 and -2.5 at the femoral neck or spine)AND a 10-year probability of a hip fracture = 3% OR a 10-year probability of a majorosteoporosis-related fracture = 20% based on the [place]-adapted WHO algorithm Please note that all treatment decisions require clinical judgment andconsideration of individual patient factors, including patient preferences, co- morbidities,previous drug use, risk factors not captured in the FRAX model (e.g., frailty, falls, vitaminD deficiency, increased bone turnover, interval significant decline in bone density) andpossible under- or over-estimation of fracture risk by FRAX. Optional alternative screening schedule based on maurice Solis al., NEJMJanuary 2011 for patients with osteopenia (based on hip BMD T-score) is as follows: * advanced osteopenia (T scores -2.00 to -2.49), BMD testing every year * moderate osteopenia (T scores -1.50 to -1.99), BMD testing every 5years mild osteopenia or normal BMD (T scores -1.50 and higher), BMD testingevery 15 years us Latia Be VALENZUELA IM DXA PROCEDURES Final Result from Last 3 Months or Most Recently Relevant to Health Maintenance Insurance MEDICARE [facility] Care Teams Stockroom Clerk Relationship Specialty Start Date End Date Gabriel Bernard PA [address] [place] [address] PCP - General Internal Medicine 06/23/20
--- OUTSIDE RECORDS SUMMARY | 2025-01-15 15:13 | XMS_ITS | Encounter Summary ---
Author Organization [facility] Address [address] [place] [address] Care Team Providers Care Hand Splitter Name Role Phone Gabriel Bernard Primary Care Provider [phone] Reason for Visit * Reason Onset Date Comments Medication Problem 01/14/2025 Encounter Details Date Type Department Care Team ([facility] Contact Info) Description 01/14/2025 Telephone Adult Medicine [address] [phone] Gabriel Bernard PA [address] [place] [id number] Social History Tobacco Use Types Packs/Day Years Used Date Smoking Tobacco: Never Smokeless Tobacco: Never Alcohol Use Standard Drinks/Week Comments No 0 [...] for your loved ones. For example, child care provider or elderly care for an older adult? [...] on file Sexual Orientation Not on file documented as of this encounter Ordered Prescriptions Prescription Sig Dispense Quantity Refills Last Filled Start Date End Date levothyroxine (SYNTHROID, LEVOTHROID) 50 mcg tabletIndications:E ssential (primary) hypertension Take 1 tablet (50 mcg total) by mouth 1 (one) time each day before breakfast. 127 tablet 1 01/14/2025 documented in this encounter Progress Notes * Manuela Ashraf MA - 01/14/2025 3:25 PM EDT Last OV: 06/21/2024 Upcoming appt: 02/26/2025 Lab Results Component Value Date TSH 0.86 06/19/2024 Medication pending for approval * Nory Carol - 01/14/2025 3:10 PM EDT Patient calling in to inquire about the status of a call back as she had to pay out of pocket. She only has enough for this week and worried about what's going to happen next week. Please advise. * Major Frazier - 01/14/2025 8:50 AM EDT Medication Problem: What is the name of the medication patient is having a problem with?: levothyroxine (SYNTHROID, LEVOTHROID) 50 mcg tablet Sig: TAKE 1 TABLET BY MOUTH ONCE DAILY BEFORE BREAKFAST Sent to pharmacy as: levothyroxine 50 mcg tablet (SYNTHROID, LEVOTHROID) Class: Normal Route: oral E-Prescribing Status: Receipt confirmed by pharmacy (12/28/2024 3:52 PM EDT) Renewals What is the problem?: patient states dosing of this medication is incorrect and she is unsure why. States she takes 10 pills weekly, not 7 as is currently prescribed. Was supposed to have med review appt today with deepika lr which was cancelled due to provider being out of office. Pt was looking to discuss this today, requesting call back from nurse to discuss. Who is calling about the problem? : The patient Is this a NEW medication?: no How long has the patient been taking this medication? Who prescribed this medication for the patient? Deepika Lr/Gabriel Bernard Who is patients PCP?: BIANCA Liu Payor: MEDICARE / Plan: MEDICARE PART A & B / Product Type: Medicare / documented in this encounter Plan of Treatment Upcoming Encounters Date Type Department Care Team (Late st Contact Info) Description 02/26/2025 12:30 PM EST Office Visit Adult Medicine [facility] [address] [place] [address] Deepika Lr PA [address] [place], [place] documented as of this encounter Visit Diagnoses Diagnosis Essential (primary) hypertension Unspecified essential hypertension documented in this encounter Discontinued Medications Medication Sig Discontinue Reason Start Date End Da te levothyroxine (SYNTHROID, LEVOTHROID) 50 mcg tabletIndications:Essent ial (primary) hypertension TAKE 1 TABLET BY MOUTH ONCE DAILY BEFORE BREAKFAST Reorder 12/28/2024 01/14/2025 documented as of this encounter Additional Health Concerns Assessment Noted Time PHQ-9 Depression Total Score: 0 06/21/19 25 1:24 PM EST A fall risk assessment has been complete d for the patient 06/21/2024 1:24 PM EST documented as of this encounter Care Teams Hand Splitter Relationship Specialty Start Date End Date Gabriel Bernard PA [address] [place] [id number] PCP - General Internal Medicine 06/23/20 documented as of this encounter
== END 2025-01-15 12:51 | disposition home or self-care (01) ==
LOC: HO.HSM 12:20
PROVIDERS: PCP Physician Assistant Medical; Referring Provider Physician Assistant Medical; Visit Provider Psychiatry & Neurology Neurology
DX: F41.9 Anxiety disorder, unspecified (principal); R25.1 Tremor, unspecified; G31.09 Other frontotemporal neurocognitive disorder; F02.80 Dementia in other diseases classified elsewhere, unspecified severity, without behavioral disturbance, psychotic disturbance, mood disturbance, and anxiety
CPT/HCPCS: 99214

== ENCOUNTER → 2025-01-15 12:20 | Outpatient (BNVA) | payer MEDICARE, SELFPAY | PROVIDERS: PCP Physician Assistant Medical; Referring Provider Physician Assistant Medical; Visit Provider Psychiatry & Neurology Neurology | DX: G31.09 Other frontotemporal neurocognitive disorder (principal); F02.80 Dementia in other diseases classified elsewhere, unspecified severity, without behavioral disturbance, psychotic disturbance, mood disturbance, and anxiety; F41.9 Anxiety disorder, unspecified; R25.1 Tremor, unspecified | CPT/HCPCS: 99212 ==